=== PATIENT | female | born 1960 ===

== ENCOUNTER 2018-03-29 12:21 | Outpatient (REF) | payer BC, SELFPAY ==
[2018-03-29 19:18] LABS: ALT 29 U/L (12-78); AST 26 U/L (15-37); Anion Gap 9.6 mmol/L (3-11); BUN 17 mg/dL (7-18); CO2 26.4 mmol/L (21.0-32.0); CREATININE 0.92 mg/dL (0.55-1.02); Calcium 9.7 mg/dL (8.5-10.1); Chloride 104 mmol/L (98-107); Glucose 93 mg/dL (70-100); Potassium 4.4 mmol/L (3.5-5.1); Sodium 140 mmol/L (136-145)
[2018-03-29 19:25] LABS: Troponin I < 0.02 ng/mL (0.00-0.06)
== END 2018-03-29 12:41 ==
LOC: NCHCN 12:21
PROVIDERS: PCP Nurse Practitioner Family; Visit Provider Nurse Practitioner Family
DX: I48.91 Unspecified atrial fibrillation (principal); R07.9 Chest pain, unspecified; F10.10 Alcohol abuse, uncomplicated
CPT/HCPCS: 80048; 84450; 84460; 84484

== ENCOUNTER 2018-05-04 12:15 | Outpatient (REF) | payer BC, SELFPAY ==
[2018-05-04 19:19] LABS: Bilirubin Negative (Negative); Blood Trace-intact (Negative); Clarity Clear; Glucose Negative (Negative); Ketones Negative (Negative); Leukocyte Esterase Negative (Negative); Nitrite Negative (Negative); Specific Gravity 1.015 (1.005-1.025); Urobilinogen 0.2 EU/dL (Up TO 0.2)
[2018-05-04 20:27] LABS: RBC 0-2 (0-2); WBC 0-2 HPF (0-5)
[2018-05-04 20:28] LABS: Bacteria Rare HPF (Negative); C & S Indicated? No; Casts Negative LPF (Negative); Crystals Negative HPF (Negative); Epithelial Cells Few HPF (Negative); Mucus Negative (Negative); Other Cells Negative (Negative)
== END 2018-05-04 12:35 ==
LOC: NCHCN 12:15
PROVIDERS: PCP Nurse Practitioner Family; Visit Provider Nurse Practitioner Family
DX: K92.0 Hematemesis (principal); M54.9 Dorsalgia, unspecified
CPT/HCPCS: 81003; 81015

== ENCOUNTER 2018-10-20 12:17 | Outpatient (REF) | payer BC, SELFPAY ==
[2018-10-20 20:57] LABS: Anion Gap 9.3 mmol/L (3-11); BUN 25 mg/dL (7-18); CO2 26.7 mmol/L (21.0-32.0); CREATININE 0.96 mg/dL (0.55-1.02); Calcium 8.8 mg/dL (8.5-10.1); Chloride 105 mmol/L (98-107); Estimated GFR 59.28 (mL/min/1.73m2); Glucose 100 mg/dL (70-100); Potassium 4.6 mmol/L (3.5-5.1); Sodium 141 mmol/L (136-145)
== END 2018-10-20 12:37 ==
LOC: NCHCN 12:17
PROVIDERS: PCP Nurse Practitioner Family; Visit Provider Nurse Practitioner Family
DX: R73.09 Other abnormal glucose (principal); I27.20 Pulmonary hypertension, unspecified
CPT/HCPCS: 80048; 83036

== ENCOUNTER 2020-03-19 03:30 | Outpatient (CLI) | payer BC, SELFPAY ==
[2020-03-19] MEDS: Normal Saline Flush 10 ML SYR IVP (13:14)
[2020-03-19] MEDS: Normal Saline 500 ML 30 ML IV (13:14)
[2020-03-19 13:25] VITALS: BP 100/61; PULSE 73; RESP 12; TEMP 36.3; O2SAT 97
[2020-03-19 13:34] VITALS: BP 105/71; PULSE 98; RESP 12; TEMP 36.5; O2SAT 98
[2020-03-19 13:58] VITALS: BP 116/82; PULSE 85; RESP 17; TEMP 36.6; O2SAT 96
[2020-03-19 14:23] VITALS: BP 95/63; PULSE 55; RESP 12; TEMP 36.9; O2SAT 95
== END 2020-03-19 03:50 ==
PROVIDERS: PCP Nurse Practitioner Family; Visit Provider Family Medicine
DX: U07.1 COVID-19 (principal)
CPT/HCPCS: 96365